=== PATIENT | female | born 2000 | race Hispanic/Latino ===

== ENCOUNTER 2023-02-06 14:52 | Inpatient (IN) | payer OTHER ==
[~2023-02-06 14:52] MED LIST: Bupivacaine 0.25% HCL 30 ML VIAL ONE
[2023-02-06 20:36] VITALS: BMI 30.1
[2023-02-06] MEDS: Lactated Ringer's 1,000 ML IV SCH (20:45)
[2023-02-06] MEDS ORDERED: Ibuprofen 800 MG TAB PO PRN (21:11)
[2023-02-06] MEDS ORDERED: Carboprost 250 MCG/ML AMP IM PRN (21:11)
[2023-02-06] MEDS ORDERED: Tranexamic Acid 1,000 MG/10 ML VIAL IVP PRN (21:11)
[2023-02-06] MEDS ORDERED: Acetaminophen 500 MG TAB PO PRN (21:11)
[2023-02-06] MEDS ORDERED: hydrALAZINE 20 MG/ML VIAL SLOW IVP PRN (21:11)
[2023-02-06] MEDS ORDERED: Ondansetron PF 4 MG/2 ML Vial IVP PRN (21:11)
[2023-02-06] MEDS ORDERED: Methylergonovine 0.2 MG/ML VIAL IM PRN (21:11)
[2023-02-06] MEDS ORDERED: HYDROcodone/Acetaminophen 5/325 mg Tablet PO PRN (21:11)
[2023-02-06] MEDS ORDERED: Promethazine HCl 25 MG/ML VIAL IM PRN (21:11)
[2023-02-06] MEDS ORDERED: fentaNYL 50 mcg/mL 1 mL Vial SLOW IVP PRN (21:11)
[2023-02-06] MEDS ORDERED: Diphenoxylate HCl/Atropine Tablet PO PRN (21:11)
[2023-02-06] MEDS ORDERED: Misoprostol 200 MCG TAB PR PRN (21:11)
[2023-02-06] MEDS ORDERED: Lidocaine 1% (PF) 30 ML VIAL SC PRN (21:11)
[2023-02-06] MEDS ORDERED: Oxytocin 30 units/NS 500 ML 500 ML IV SCH ×3 (21:15)
[2023-02-06] MEDS: Misoprostol 100 MCG TAB VAG SCH (21:25)
[2023-02-06 21:29] LABS: Hematocrit 29.8 % (34.9-44.5); Hemoglobin 9.2 g/dL (12.0-15.5); Mean Corpuscular HGB CONC 30.9 g/dL (32.0-36.0); Mean Corpuscular Hemoglobin 22.4 pg (27.0-33.0); Mean Corpuscular Volume 72.5 fl (81.6-98.3); Mean Platelet Volume 9.6 fl (7.4-10.4); Platelet Count 357 10x3/uL (150-450); RBC Distribution Width 15.9 % (11.5-14.5); Red Blood Cell (RBC) Count 4.11 10x6/uL (3.90-5.03); White Blood Cell (WBC) Count 11.4 10x3/uL (3.5-10.5)
[2023-02-06 21:59] LABS: HBSAg Index 0.13 S/CO (0-0.99); Hep B Surf Ag - L&D Non-Reactive S/CO (NonReactive)
[2023-02-06 22:00] LABS: Syphilis Antibody Nonreactive (Nonreactive); Syphilis Antibody Index 0.03 S/CO (<1.00 Non-Reactive)
[2023-02-07] MEDS: Misoprostol 100 MCG TAB VAG SCH ×3 (00:45→16:15)
[2023-02-07] MEDS ORDERED: fentaNYL/Ropivacaine Epidural 100 ML ONE (01:00)
[2023-02-07] MEDS: Lactated Ringer's 1,000 ML IV SCH ×2 (05:12→16:16)
[2023-02-07] MEDS ORDERED: fentaNYL 2 mcg/Ropivacaine 0.2% Epidural 100 ML CADD EPIDURAL SCH (05:30)
[2023-02-07] MEDS ORDERED: Promethazine HCl 25 MG/ML VIAL IM PRN ×2 (05:30→15:57)
[2023-02-07] MEDS ORDERED: Acetaminophen 325 MG TAB PO PRN (05:30)
[2023-02-07] MEDS ORDERED: diphenhydrAMINE 50 MG/ML VIAL IVP PRN (05:30)
[2023-02-07] MEDS ORDERED: Lactated Ringer's 500 ML IV PRN (05:30)
[2023-02-07] MEDS ORDERED: ePHEDrine Sulfate 50 MG/10 ML VIAL SLOW IVP PRN (05:30)
[2023-02-07] MEDS ORDERED: Ondansetron PF 4 MG/2 ML Vial IVP PRN ×2 (05:30→15:57)
[2023-02-07] MEDS ORDERED: Communication Order-Pharmacy FS SCH (05:30)
[2023-02-07] MEDS ORDERED: Naloxone HCl 0.4 mg/ml Vial IVP PRN ×2 (05:30)
[2023-02-07] MEDS ORDERED: Moisturizing Cream (Eucerin) 113 GM JAR TOP PRN (05:30)
[2023-02-07] MEDS ORDERED: Lanolin Ointment 7 GM TUBE TOP PRN (15:57)
[2023-02-07] MEDS ORDERED: Oxytocin 30 units/NS 500 ML 500 ML IV SCH (15:57)
[2023-02-07] MEDS ORDERED: Boostrix 0.5 ML (Tdap) VIAL (>/=7 yrs of age) IM ONE (15:57)
[2023-02-07] MEDS ORDERED: Milk Of Magnesia 30 ML UDCUP PO PRN (15:57)
[2023-02-07] MEDS ORDERED: hydrALAZINE 20 MG/ML VIAL SLOW IVP PRN (15:57)
[2023-02-07] MEDS ORDERED: diphenhydrAMINE 25 MG CAP PO PRN (15:57)
[2023-02-07] MEDS ORDERED: Bisacodyl 10 MG SUPP PR PRN (15:57)
[2023-02-07] MEDS ORDERED: Ibuprofen 800 MG TAB PO SCH (16:15)
[2023-02-07] MEDS: Ferrous Sulfate 325 MG TAB PO SCH (18:21)
[2023-02-07] MEDS: Docusate 100 MG CAP PO SCH (21:43)
[2023-02-07] MEDS: Ibuprofen 800 MG TAB PO SCH (23:12)
[2023-02-07] MEDS: HYDROcodone/Acetaminophen 5/325 mg Tablet PO PRN (23:12)
[2023-02-08] MEDS: HYDROcodone/Acetaminophen 5/325 mg Tablet PO PRN (03:23)
[2023-02-08] MEDS: Ibuprofen 800 MG TAB PO SCH ×2 (08:12→16:52)
[2023-02-08] MEDS: Ferrous Sulfate 325 MG TAB PO SCH ×2 (08:12→16:53)
[2023-02-08] MEDS: Docusate 100 MG CAP PO SCH (08:15)
[2023-02-08] MEDS ORDERED: Prenatal Vitamin 1 TAB PO SCH (09:00)
[2023-02-08 13:06] VITALS: BP 113/66; TEMP 97.9
== END 2023-02-08 20:05 | disposition home or self-care (01) | DRG 807 ==
LOC: CSHLD 20:04 → CSHPP 02-07 15:45
PROVIDERS: ADMIT Family Medicine; ATTEND Family Medicine
PROC: 10E0XZZ Delivery of Products of Conception, External Approach (ICD-10-PCS; principal; 2023-02-07)
PROC: 3E0P7VZ Introduction of Hormone into Female Reproductive, Via Natural or Artificial Opening (ICD-10-PCS; 2023-02-07)
DX: O69.81X0 Labor and delivery complicated by cord around neck, without compression, not applicable or unspecified (principal); Z37.0 Single live birth; Z3A.40 40 weeks gestation of pregnancy
CPT/HCPCS: 51702; 85027; 86780; 86850; 86900; 86901; 87340; J2405; J7120; S0020

== ENCOUNTER 2023-02-09 19:17 | Emergency (ER) | payer OTHER | END 2023-02-09 22:00 | disposition home or self-care (01) | LOC: CSHERS 19:17 | DX: O72.1 Other immediate postpartum hemorrhage (principal) | CPT/HCPCS: 76857 ==